=== PATIENT | female | born 1990 | race Caucasian/White ===

== ENCOUNTER 2018-11-28 03:51 | Inpatient (IN) | payer MEDICAID ==
[~2018-11-28] VITALS: Ht 162.6 cm; Wt 62.9 kg
[~2018-11-28 03:51] MED LIST: DIAZ10TA PO; ZOLOFT PO
[2018-11-28] MEDS ORDERED: SODIUM CHLORIDE 0.9% 1,000 ML IV ONE (03:55)
[2018-11-28] MEDS ORDERED: SODIUM CHLORIDE FLUSH 10ML SYR IVF ONE (04:00)
[2018-11-28] MEDS ORDERED: ONDANSETRON 2MG/ML, 2ML IVPush ONE (04:00)
[2018-11-28] MEDS ORDERED: MORPHINE SULFATE 4 MG/ML, 1ML IVPush PRN (04:00)
[2018-11-28] MEDS ORDERED: ESCI10TA10 PO (04:03)
--- NOTE | 2018-11-28 04:03 | NUR ---
BIB [facility] FROM [facility] FOR RIGHT FACIAL/NECK ABSCESS. [facility] ADMIN 50MCG F[place]ANYL EN ROUTE. PT. VERY DRWOSY ON ARRIVAL AND ONLY ANSWERING QUESTIONS IN 1 WORD AND REQUIRES QUESTIONS TO BE REPEATED BEFORE ANSWERING. VSS. DR. MELTON WAS IN TO EVAL PT. AND DISCUSS POC WITH PT. AND BOYFRIEND WHO ARRIVED AT . PT. PLACED ON CONTINUOUS PULSE OX AND B/P MONITORS. CALL LIGHT IN REACH. PT. TO CT VIA VISHNU SAENZ.
[2018-11-28] MEDS ORDERED: OMNIPAQUE 350 MG/ML, 100ML BOTTLE ONE (04:18)
[2018-11-28] MEDS ORDERED: ONDANSETRON 2MG/ML, 2ML ONE (04:28)
[2018-11-28] MEDS ORDERED: MORPHINE SULFATE 4 MG/ML, 1ML ONE (04:28)
--- NOTE | 2018-11-28 04:34 | NUR ---
UPON RETURN FROM CT PT. AMBULATED TO BR AND BACK TO ROOM WITH ASSIST FROM BOYFRIEND. PT. HAS BEEN MEDICATED PER OCT FOR REPORTED 10/10 FACIAL PAIN. LAB AT FOR BLOOD DRAW. ALAINA PAW WARMER IN USE PT. C/O BEING COLD. CALL LIGHT IN REACH. ALL SAFETY MEASURES OBSERVED.
[2018-11-28 04:53] LABS: ALBUMIN 3.1 g/dL (3.4-5.0); ANION GAP 6 mmol/L (5-15); CHLORIDE 103 mmol/L (98-107); CREATININE 0.65 mg/dL (0.55-1.02)
--- NOTE | 2018-11-28 05:22 | NUR ---
PT. TO HAVE 2 SETS OF BLOOD CULTURES PRIOR TO VANCO. PT. DID RECEIVE 3G UNASYN AT [facility].
--- NOTE | 2018-11-28 05:28 | NUR ---
DR. MELTON IN TO DISCUSS POC WITH PT. AND BOYFRIEND. PT. IS RESTING ON GURNEY WITH EYES CLOSED. O2 SAT DROPPING TO 85%; 2L O2 VIA NC PLACED WITH IMMEDIATE INCREASE TO 98%. ALL SAFETY MEASURES OBSERVED.
[2018-11-28] MEDS ORDERED: VANCOMYCIN PER PHARMACY MC PRN (05:30)
[2018-11-28] MEDS ORDERED: VANCOMYCIN 1,200 MG in SODIUM CHLORIDE 0.9% 250 ML IV ONE (05:30)
--- NOTE | 2018-11-28 05:40 | NUR ---
REPORT TO CHARANJIT BRAN. FLOOR READY FOR PT. TRANSPORT. PT. IS GETTING BLOOD CULTURES DRAWN BY LAB AT THIS TIME.
[2018-11-28 06:01] LABS: MEAN CORPUSCULAR HEMOGLOBIN 30.8 pg (27.0-34.8); MEAN CORPUSCULAR HGB CONC 34.2 g/dL (32.4-35.8); MEAN CORPUSCULAR VOLUME 90.1 fL (80-100); MEAN PLATELET VOLUME 7.4 fL (7.4-10.4); PLATELET COUNT 159 x10^3/uL (130-400); RED BLOOD COUNT 4.01 x10^6/uL (3.82-5.3); RED CELL DISTRIBUTION WIDTH 12.7 % (9.6-15.2)
[2018-11-28 06:02] LABS: BASOPHILS # (AUTO) 0.02 x10^3/uL (0-0.1); BASOPHILS % (AUTO) 0 % (0-1); EOSINOPHILS # (AUTO) 0.12 x10^3/uL (0-0.4); EOSINOPHILS % (AUTO) 1 % (1-7); LYMPHOCYTES # (AUTO) 1.87 x10^3/uL (1-3.4); LYMPHOCYTES % (AUTO) 15 % (22-44); MONOCYTES # (AUTO) 0.65 x10^3/uL (0.2-0.8); MONOCYTES % (AUTO) 5 % (2-9); NEUTROPHILS # (AUTO) 9.53 x10^3/uL (1.8-6.8); NEUTROPHILS % (AUTO) 78 % (42-75)
[2018-11-28 06:03] VITALS: BP 97/58
[2018-11-28 06:50] VITALS: BP 115/69
[2018-11-28 07:02] LABS: MD NO
[2018-11-28] MEDS: KETOROLAC 30 MG/1 ML IVPush PRN ×2 (09:53→16:51)
[2018-11-28] MEDS ORDERED: morphine SULFATE 10 MG/ML, 1ML IVPush PRN (10:00)
[2018-11-28] MEDS ORDERED: ONDANSETRON 2MG/ML, 2ML IVPush PRN ×2 (10:00→16:00)
[2018-11-28] MEDS: DEXAMETHASONE 4 MG/ML, 1ML IVPush SCH ×3 (10:28→22:55)
[2018-11-28] MEDS: AMPICILLIN/SULBACTAM 3 GM in SODIUM CHLORIDE 0.9% 100 ML IV SCH ×3 (10:28→22:54)
[2018-11-28 14:18] VITALS: BP 97/62
[2018-11-28] MEDS: SODIUM CHLORIDE 0.9% 1,000 ML IV SCH ×2 (14:24→22:54)
[2018-11-28] MEDS ORDERED: BISACODYL 10 MG SUPP PR PRN (16:00)
[2018-11-28] MEDS ORDERED: ONDANSETRON ODT 4 MG PO PRN (16:00)
[2018-11-28] MEDS ORDERED: ACETAMINOPHEN 325 MG TABLET PO PRN (16:00)
[2018-11-28] MEDS ORDERED: PROMETHAZINE 25 MG/ML, 1ML IM PRN (16:00)
[2018-11-28] MEDS ORDERED: POLYETHYLENE GLYCOL 17 GM PACKET PO PRN (16:00)
[2018-11-28] MEDS ORDERED: DOCUSATE 100 MG CAPSULE PO PRN (16:00)
[2018-11-28 16:43] LABS: FREE T4 (FREE THYROXINE) 1.42 ng/dL (0.76-1.46); THYROID STIMULATING HORMONE 0.214 mIU/L (0.358-3.740)
[2018-11-28] MEDS: METHADONE 5 MG TABLET PO SCH ×2 (16:52→22:54)
[2018-11-28 19:58] VITALS: BP 100/55
[2018-11-29 02:00] VITALS: BP 93/54
[2018-11-29] MEDS: DEXAMETHASONE 4 MG/ML, 1ML IVPush SCH ×3 (05:03→20:16)
[2018-11-29] MEDS: AMPICILLIN/SULBACTAM 3 GM in SODIUM CHLORIDE 0.9% 100 ML IV SCH ×3 (05:03→20:15)
[2018-11-29] MEDS: METHADONE 5 MG TABLET PO SCH (05:04)
[2018-11-29] MEDS: KETOROLAC 30 MG/1 ML IVPush PRN ×2 (05:11→15:44)
[2018-11-29 06:03] LABS: CHLORIDE 114 mmol/L (98-107)
[2018-11-29 06:09] LABS: MD SCAN
[2018-11-29 06:10] LABS: ALANINE AMINOTRANSFERASE 21 U/L (12-78); ALBUMIN 2.5 g/dL (3.4-5.0); ALKALINE PHOSPHATASE 59 U/L (45-117); ANION GAP 4 mmol/L (5-15); BASOPHILS # (AUTO) 0.02 x10^3/uL (0-0.1); BASOPHILS % (AUTO) 0 % (0-1); BILIRUBIN,TOTAL 0.1 mg/dL (0.2-1.0); CALCIUM 7.8 mg/dL (8.5-10.1); CHOL/HDL RATIO 2.3; CHOLESTEROL, TOTAL 118 mg/dL (140-239); CREATININE 0.49 mg/dL (0.55-1.02); EOSINOPHILS % (AUTO) 0 % (1-7); HDL CHOL % 43 % (28-40); HDL CHOLESTEROL (DIRECT) 51 mg/dL (40-60); LDL CHOLESTEROL,CALCULATED 57 mg/dL (54-169); LDL/HDL RATIO 1.1 (0.5-3.0); LYMPHOCYTES # (AUTO) 0.65 x10^3/uL (1-3.4); LYMPHOCYTES % (AUTO) 7 % (22-44); MEAN CORPUSCULAR HEMOGLOBIN 31.1 pg (27.0-34.8); MEAN CORPUSCULAR HGB CONC 34.2 g/dL (32.4-35.8); MEAN CORPUSCULAR VOLUME 90.9 fL (80-100); MEAN PLATELET VOLUME 8.5 fL (7.4-10.4); MONOCYTES # (AUTO) 0.11 x10^3/uL (0.2-0.8); MONOCYTES % (AUTO) 1 % (2-9); NEUTROPHILS # (AUTO) 8.85 x10^3/uL (1.8-6.8); NEUTROPHILS % (AUTO) 92 % (42-75); PLATELET COUNT 187 x10^3/uL (130-400); RED BLOOD COUNT 3.91 x10^6/uL (3.82-5.3); TOTAL PROTEIN 5.7 g/dL (6.4-8.2); TRIGLYCERIDES 51 mg/dL (50-200); VLDL CHOLESTEROL 10 mg/dL (0-25)
[2018-11-29] MEDS: ESCITALOPRAM 10MG TABLET PO SCH (08:47)
[2018-11-29] MEDS: SODIUM CHLORIDE 0.9% 1,000 ML IV SCH ×2 (08:48→14:13)
[2018-11-29] MEDS ORDERED: ONDANSETRON 2MG/ML, 2ML ONE (09:02)
[2018-11-29] MEDS ORDERED: EPHEDRINE 50 MG/ML, 1ML ONE (09:02)
[2018-11-29] MEDS ORDERED: DEXAMETHASONE 4 MG/ML, 1ML ONE (09:02)
[2018-11-29] MEDS ORDERED: SUCCINYLCHOLINE 20 MG/ML, 10ML ONE (09:02)
[2018-11-29] MEDS ORDERED: PROPOFOL 10 MG/ML, 20ML ONE (09:02)
[2018-11-29] MEDS ORDERED: METHADONE 10 MG TABLET PO SCH (10:30)
[2018-11-29 11:00] VITALS: BP 94/53
[2018-11-29] MEDS ORDERED: OMNIPAQUE 350 MG/ML, 100ML BOTTLE ONE (11:22)
[2018-11-29 15:39] VITALS: BP 95/60
[2018-11-29] MEDS ORDERED: FENTANYL PF 250 MCG/5ML ONE (17:00)
[2018-11-29 17:09] LABS: HCG UR SG > 1.045 (1.003-1.030)
[2018-11-29] MEDS ORDERED: MIDAZOLAM 1 MG/ML, 2ML ONE (17:09)
[2018-11-29] MEDS ORDERED: LIDOCAINE 1%-EPI 1:100K, 20ML ONE (17:21)
[2018-11-29] MEDS ORDERED: HALOPERIDOL 5 MG/ML ONE ×2 (18:36→18:42)
[2018-11-29] MEDS ORDERED: HYDROmorphone 2 MG/ML, 1ML IVPush PRN (19:00)
[2018-11-29] MEDS ORDERED: OXYcodone 5 MG/5 ML ORAL.SOL UDC PO PRN (19:00)
[2018-11-29] MEDS ORDERED: HALOPERIDOL 5 MG/ML IV PRN (19:00)
[2018-11-29] MEDS ORDERED: FENTANYL PF 100 MCG/2ML IV PRN (19:00)
[2018-11-29] MEDS ORDERED: PROMETHAZINE 25 MG/ML, 1ML IV PRN (19:00)
[2018-11-29] MEDS ORDERED: MEPERIDINE/PF 25MG/0.5ML IVPush PRN (19:00)
[2018-11-29 19:40] VITALS: BP 104/61
[2018-11-30] MEDS: KETOROLAC 30 MG/1 ML IVPush PRN (00:28)
[2018-11-30] MEDS: SODIUM CHLORIDE 0.9% 1,000 ML IV SCH ×3 (00:28→14:19)
[2018-11-30 01:27] VITALS: BP 96/54
[2018-11-30] MEDS: DEXAMETHASONE 4 MG/ML, 1ML IVPush SCH ×4 (02:24→19:40)
[2018-11-30] MEDS: AMPICILLIN/SULBACTAM 3 GM in SODIUM CHLORIDE 0.9% 100 ML IV SCH ×4 (02:24→19:40)
[2018-11-30] MEDS: ACETAMINOPHEN 500 MG TABLET PO PRN (02:33)
[2018-11-30 05:19] LABS: MEAN CORPUSCULAR HEMOGLOBIN 30.2 pg (27.0-34.8); MEAN CORPUSCULAR HGB CONC 33.3 g/dL (32.4-35.8); MEAN CORPUSCULAR VOLUME 90.7 fL (80-100); MEAN PLATELET VOLUME 9.1 fL (7.4-10.4); PLATELET COUNT 171 x10^3/uL (130-400); RED BLOOD COUNT 3.76 x10^6/uL (3.82-5.3)
[2018-11-30 05:32] LABS: MD YES
[2018-11-30 05:35] LABS: BAND#(MANUAL) 0.36 x10^3/uL; BANDS%(MANUAL) 3 % (0-7); LYMPH#(MANUAL) 1.09 x10^3/uL (1-3.4); LYMPHS% (MANUAL) 9 % (22-44); SEG#(MANUAL) 10.65 x10^3/uL (1.8-6.8); SEGS% (MANUAL) 88 % (42-75)
[2018-11-30 05:36] LABS: <PLATELET ESTIMATE> ADEQUATE; <PLT MORPHOLOGY> NORMAL PLT MORPH; <RBC MORPHOLOGY> NORMAL
[2018-11-30] MEDS: ESCITALOPRAM 10MG TABLET PO SCH (08:20)
[2018-11-30 08:22] VITALS: BP 105/62
[2018-11-30] MEDS ORDERED: METHADONE 10 MG TABLET PO SCH (09:00)
[2018-11-30 14:22] VITALS: BP 111/68
[2018-11-30 20:08] VITALS: BP 101/67
[2018-12-01 01:30] VITALS: BP 108/69
[2018-12-01] MEDS: AMPICILLIN/SULBACTAM 3 GM in SODIUM CHLORIDE 0.9% 100 ML IV SCH ×4 (01:36→21:06)
[2018-12-01] MEDS: DEXAMETHASONE 4 MG/ML, 1ML IVPush SCH ×3 (01:36→14:24)
[2018-12-01] MEDS: KETOROLAC 30 MG/1 ML IVPush PRN ×2 (08:35→21:06)
[2018-12-01] MEDS: ESCITALOPRAM 10MG TABLET PO SCH (08:36)
[2018-12-01] MEDS: METHADONE 10 MG TABLET PO SCH (08:37)
[2018-12-01 09:03] VITALS: BP 111/69
[2018-12-01 14:28] VITALS: BP 111/67
[2018-12-01 18:32] VITALS: BP 112/72
[2018-12-02 01:23] VITALS: BP 126/81
[2018-12-02] MEDS: AMPICILLIN/SULBACTAM 3 GM in SODIUM CHLORIDE 0.9% 100 ML IV SCH ×4 (02:58→21:02)
[2018-12-02] MEDS: KETOROLAC 30 MG/1 ML IVPush PRN ×2 (02:59→21:06)
[2018-12-02 04:41] LABS: ANION GAP 6 mmol/L (5-15); CALCIUM 7.6 mg/dL (8.5-10.1); CHLORIDE 112 mmol/L (98-107); CREATININE 0.59 mg/dL (0.55-1.02)
[2018-12-02 06:22] LABS: MEAN CORPUSCULAR HGB CONC 32.9 g/dL (32.4-35.8); MEAN CORPUSCULAR VOLUME 91.2 fL (80-100); MEAN PLATELET VOLUME 8.9 fL (7.4-10.4); PLATELET COUNT 197 x10^3/uL (130-400); RED BLOOD COUNT 4.06 x10^6/uL (3.82-5.3); RED CELL DISTRIBUTION WIDTH 12.7 % (9.6-15.2)
[2018-12-02 06:49] LABS: BASOPHILS # (AUTO) 0.01 x10^3/uL (0-0.1); BASOPHILS % (AUTO) 0 % (0-1); EOSINOPHILS % (AUTO) 0 % (1-7); LYMPHOCYTES # (AUTO) 1.32 x10^3/uL (1-3.4); LYMPHOCYTES % (AUTO) 19 % (22-44); MD SCAN; MONOCYTES # (AUTO) 0.48 x10^3/uL (0.2-0.8); MONOCYTES % (AUTO) 7 % (2-9); NEUTROPHILS # (AUTO) 5.05 x10^3/uL (1.8-6.8); NEUTROPHILS % (AUTO) 74 % (42-75)
[2018-12-02 07:41] VITALS: BP 132/84
[2018-12-02] MEDS: METHADONE 10 MG TABLET PO SCH (08:13)
[2018-12-02] MEDS: ESCITALOPRAM 10MG TABLET PO SCH (08:13)
[2018-12-02 11:42] VITALS: BP 111/67
[2018-12-02 18:29] VITALS: BP 99/63
[2018-12-03 00:14] VITALS: BP 109/72
[2018-12-03] MEDS: AMPICILLIN/SULBACTAM 3 GM in SODIUM CHLORIDE 0.9% 100 ML IV SCH ×4 (02:52→21:10)
[2018-12-03 09:08] VITALS: BP 120/77
[2018-12-03] MEDS: ESCITALOPRAM 10MG TABLET PO SCH (09:29)
[2018-12-03] MEDS: METHADONE 10 MG TABLET PO SCH (09:29)
[2018-12-03 14:35] VITALS: BP 94/62
[2018-12-03 18:30] VITALS: BP 94/60
[2018-12-03] MEDS: ACETAMINOPHEN 500 MG TABLET PO PRN (20:06)
[2018-12-04 01:08] VITALS: BP 116/76
[2018-12-04] MEDS: AMPICILLIN/SULBACTAM 3 GM in SODIUM CHLORIDE 0.9% 100 ML IV SCH ×3 (03:25→15:30)
[2018-12-04 07:36] VITALS: BP 107/73
[2018-12-04] MEDS: ESCITALOPRAM 10MG TABLET PO SCH (11:14)
[2018-12-04] MEDS: METHADONE 10 MG TABLET PO SCH (11:14)
[2018-12-04 12:44] VITALS: BP 95/60
[2018-12-04] MEDS ORDERED: AMOX1TAB64 PO (12:49)
== END 2018-12-04 17:30 | disposition home or self-care (01) | DRG 602 ==
LOC: MERGE 03:51 → ED 05:30 → EDIP 05:31 → 3NW 05:50
PROVIDERS: ADMIT Internal Medicine; ATTEND Internal Medicine
PROC: 0JC40ZZ Extirpation of Matter from Right Neck Subcutaneous Tissue and Fascia, Open Approach (ICD-10-PCS; principal; 2018-11-29 17:00)
DX: L03.221 Cellulitis of neck (principal); E43 Unspecified severe protein-calorie malnutrition; S10.95XA Superficial foreign body of unspecified part of neck, initial encounter; L02.11 Cutaneous abscess of neck; Z68.23 Body mass index [BMI] 23.0-23.9, adult; F11.10 Opioid abuse, uncomplicated; F17.200 Nicotine dependence, unspecified, uncomplicated; R13.10 Dysphagia, unspecified; X58.XXXA Exposure to other specified factors, initial encounter; Y93.89 Activity, other specified; Y92.89 Other specified places as the place of occurrence of the external cause; Y99.8 Other external cause status
CPT/HCPCS: 36415; 70360; 70491; 76000; 80048; 80053; 80061; 81025; 82040; 83735; 84145; 84439; 84443; 85025; 87040; 87070; 87075; 87077; 87176; 87186; 87205; 88300; 96374; 96375; G0378; J0295; J1100; J1885; J2250; J2405; J2704; J3010; J3370; J3490; Q9967; J0330; J2270; J7030; J7050

== ENCOUNTER 2019-07-12 12:56 | Emergency (ER) | payer MEDICAID ==
[~2019-07-12] VITALS: Ht 165.1 cm; Wt 60.0 kg
[~2019-07-12 12:56] MED LIST changes: +AMOX1TAB64 PO; +ESCI10TA10 PO
--- NOTE | 2019-07-12 13:25 | NUR ---
PT BIB [facility] AFTER REQUESTING [employer]T REPAIR[employer]S GUN TO SHOOT HERSELF. PT ADMITS TO HEROIN USE AND HAS ARON "GOING THROUGH SOME THINGS." PER [facility] PT STARTED TO REQUEST TO LEAVE ON ARRRIVAL TO HOSPITAL. PT UNCOOPERATIVE AND NOT WANTING TO GET UNDRESSED PER HOSPITAL POLICY FOR BEING ON LEGAL HOLD. PT ATTEMPTED ONCE TO RUN OUT OF THE ER AND HAD TO BE PLACED BACK IN THE ROOM. DR. LYNN AT BEDSIDE.
--- NOTE | 2019-07-12 13:25 | NUR ---
WHILE FEMALE NURSE, SANDY Carranza RN, WAS IN ROOM ATTEMPTING TO GET UNDRESSED PT ATTEMPTED TO BOLT FOR THE DOOR WITH SECURITY OBSERVING. PT PLACED IN 2 POINT RESTRAINT. PT HAS NOT BEEN VIOLENT, JUST ATTEMPTS TO LEAVE. PT UPDATED AGAIN ON POC AND CONTRADICTED HERSELF FROM EARLIER WHEN SHE SAID SHE HAD NEVER BEEN ON A LEGAL HOLD. PT KNEW THE LENGTH OF THE LEGAL HOLD AND ALSO ADMITTED TO PAST ATTEMPTS TO HURT HERSELF.
[2019-07-12] MEDS ORDERED: PLEASE ENTER HEIGHT AND WEIGHT MC SCH (13:30)
[2019-07-12] MEDS ORDERED: ZIPRASIDONE 20 MG INJ IM ONE (13:30)
[2019-07-12 13:42] LABS: BASOPHILS # (AUTO) 0.03 x10^3/uL (0-0.1); BASOPHILS % (AUTO) 0 % (0-1); EOSINOPHILS # (AUTO) 0.09 x10^3/uL (0-0.4); EOSINOPHILS % (AUTO) 1 % (1-7); LYMPHOCYTES # (AUTO) 2.35 x10^3/uL (1-3.4); LYMPHOCYTES % (AUTO) 30 % (22-44); MD NO; MEAN CORPUSCULAR HEMOGLOBIN 30.8 pg (27.0-34.8); MEAN CORPUSCULAR HGB CONC 33.4 g/dL (32.4-35.8); MEAN CORPUSCULAR VOLUME 92.4 fL (80-100); MEAN PLATELET VOLUME 8.7 fL (7.4-10.4); MONOCYTES # (AUTO) 0.61 x10^3/uL (0.2-0.8); MONOCYTES % (AUTO) 8 % (2-9); NEUTROPHILS # (AUTO) 4.77 x10^3/uL (1.8-6.8); NEUTROPHILS % (AUTO) 61 % (42-75); PLATELET COUNT 264 x10^3/uL (130-400); RED BLOOD COUNT 5.05 x10^6/uL (3.82-5.3); RED CELL DISTRIBUTION WIDTH 12.8 % (9.6-15.2)
[2019-07-12 13:53] LABS: ALANINE AMINOTRANSFERASE 28 U/L (12-78); ALBUMIN 4.4 g/dL (3.4-5.0); ANION GAP 15 mmol/L (5-15); CHLORIDE 108 mmol/L (98-107); CREATININE 1.25 mg/dL (0.55-1.02); SALICYLATE LEVEL 2.1 mg/dL (2.8-20.0)
[2019-07-12 13:55] LABS: ALKALINE PHOSPHATASE 82 U/L (45-117); BILIRUBIN,TOTAL 0.7 mg/dL (0.2-1.0); TOTAL PROTEIN 8.1 g/dL (6.4-8.2)
--- NOTE | 2019-07-12 14:20 | NUR ---
PT SLEEPING. PT BEING OBSERVEDF BY SITTER. REST OF PT CLOTHING REMOVED BY ZULLY DONOHUE AND PLACED IN SECURITY LOCKER. RESTRAINTS REMOVED. PT REQUESTING FOOD.
--- NOTE | 2019-07-12 15:51 | NUR ---
PT GIVEN MEAL TRAY. PT BEING OBSERVED BY SITTER.
--- NOTE | 2019-07-12 16:12 | NUR ---
PT ATE 75% OF MEAL TRAY. WILL ATTEMPT TO GET PT TO VOID FOR RONAL.
--- NOTE | 2019-07-12 16:46 | NUR ---
URINE COLLECTED AND SENT TO THE LAB.
[2019-07-12 16:56] LABS: HCG UR SG 1.036 (1.003-1.030)
[2019-07-12 17:10] LABS: AMPHETAMINE SCREEN, URINE Positive (Negative); BARBITURATE SCREEN, URINE Negative (Negative); BENZODIAZEPINE SCREEN, URINE Positive (Negative); CANNABINOID SCREEN, URINE Positive (Negative); COCAINE SCREEN, URINE Negative (Negative); METHADONE SCREEN, URINE Negative (Negative); OPIATE SCREEN, URINE Negative (Negative)
--- NOTE | 2019-07-12 18:23 | NUR ---
PT SLEEPING IN NAD. PT BEING OBSERVED BY SITTER. WAITING FOR SOC TO EVALUATE PT.
--- NOTE | 2019-07-12 18:41 | NUR ---
PT RESTING IN HOSPTIAL BED. SUICIDE PRECAUTIONS IN PLACE IN SUICIDE SECURED ROOM. SITTER OUTSIDE THE ROOM. PT REQUEST DINNER TRAY. DINNER ORDER PUT IN
[2019-07-12 19:44] LABS: INTERNATIONAL NORMALIZED RATIO 1.03 (0.93-1.1); PROTHROMBIN TIME 10.8 Seconds (9.6-11.5)
--- NOTE | 2019-07-12 19:44 | NUR ---
SPOKE TO SOC DR. HALL IN REGARDS TO PT. GAVE THE DOCTOR THE SITUTATION AND BACKGROUND. WHEN I AROUSED THE PT TO SPEAK WITH DR. HALL VIA SOC COMPUTER THE PT CLOSED HER EYES AND WAS UNABLE TO ANSWER DR. HALL. DR. HALL THEN CALLED THIS RN BACK AND STATED THAT SHE WAS UNABLE TO PROPERLY ASSESS THE PT AND WOUULD TRY AGAIN WHEN THE PT IS NOT TIRED.
--- NOTE | 2019-07-12 19:47 | NUR ---
PT ATE 25% OF MEAL TRAY. DID NOT TAKE A BITE OF THE SANDWHICH OR EAT THE COOKIES
[2019-07-12] MEDS ORDERED: LACTULOSE 10 GM/15 ML UDC PO ONE (20:00)
[2019-07-12] MEDS ORDERED: SODIUM CHLORIDE FLUSH 10ML SYR IVF ONE (20:30)
[2019-07-12] MEDS ORDERED: SODIUM CHLORIDE 0.9% 1,000ML IVBOLUS ONE (20:30)
[2019-07-12 20:55] VITALS: BP 117/84
--- NOTE | 2019-07-12 20:56 | NUR ---
PT IN ROOM. GETTING FLUIDS IV. REQUESTED GLASS OF WATER. IS RESTING IN BED WITH EYES CLOSED.
--- NOTE | 2019-07-12 22:01 | NUR ---
PT SLEEPING. NAD. SITTER IN PLACE.
--- NOTE | 2019-07-12 23:08 | NUR ---
PT SLEEPING. NAD. SITTER IN PLACE
--- NOTE | 2019-07-12 23:39 | NUR ---
PT GIVEN WATER PER REQUEST. PT DENIES FURTHER NEEDS AT THIS TIME. SITTER REMAINS IN PLACE
[2019-07-12 23:44] LABS: ALBUMIN 3.2 g/dL (3.4-5.0); ANION GAP 4 mmol/L (5-15); CALCIUM 8.3 mg/dL (8.5-10.1); CHLORIDE 111 mmol/L (98-107); CREATININE 0.71 mg/dL (0.55-1.02)
--- NOTE | 2019-07-13 00:03 | NUR ---
THOUGHPUT: SOC INITIATED PER DR NEVAREZ REQUEST, TELEMONITOR PLACED IN ROOM.
--- NOTE | 2019-07-13 00:05 | NUR ---
PT AWOKEN. PT STATES SHE WILL BE ABLE TO STAY AWAKE LONG ENOUGH TO SPEAK WITH THE PSYCHIATRIST. POC DISCUSSED. PT DENIES CURRENT NEEDS. PT STATES SHE STILL FEELS SUICIDAL. TELEPSYCH REPAGED.
--- NOTE | 2019-07-13 00:40 | NUR ---
THROUGHPUT: [facility]/3E CALLED, STEPHANIE TO DETERMINE ACCEPTANCE/DENIAL OF PT.
--- NOTE | 2019-07-13 00:45 | NUR ---
LATE ENTRY:REPORT GIVEN TO TELEPSYCH DOCTOR. PT VERY SOFT SPOKEN SO THIS RN ASSISTED WITH TELEPSYCH CONVERSATION. PT STILL EXPRESSING SUICIDALITY HOWEVER IS CALM AND COOPERATIVE. AFTER CONVERSATION PT REQUESTING FOOD. PT GIVEN SLOPPY JEREMIAH AND CHIPS PER REQUEST. PT DENIES FURTHER NEEDS. SITTER REMAINS IN PLACE.
--- NOTE | 2019-07-13 01:03 | NUR ---
THROUGHPUT: PACKET FAXED TO [facility], [facility] & [facility].
--- NOTE | 2019-07-13 01:47 | NUR ---
Met with pt for assessment for 3E admission. Prior auth completed with insurance. Awaiting call back from psychiatrist for acceptance. Discussed with ED staff.
--- NOTE | 2019-07-13 02:15 | NUR ---
PT SLEEPING. NAD. SITTER IN PLACE.
== END 2019-07-13 03:09 ==
LOC: ED 20:38
DX: R45.851 Suicidal ideations (principal); E86.0 Dehydration
CPT/HCPCS: 36415; 80048; 80053; 80307; 81025; 82040; 82140; 82550; 85025; 85610; 96360; 96372; 99285; J3486; J7030

== ENCOUNTER 2019-07-13 02:39 | Inpatient (IN) | payer MEDICAID ==
[~2019-07-13] VITALS: Ht 162.6 cm; Wt 60.3 kg
[2019-07-13] MEDS ORDERED: ONDANSETRON ODT 4 MG PO PRN (03:00)
[2019-07-13] MEDS ORDERED: POLYETHYLENE GLYCOL 17 GM PACKET PO PRN (03:00)
[2019-07-13] MEDS ORDERED: BISACODYL 10 MG SUPP PR PRN (03:00)
[2019-07-13] MEDS ORDERED: DOCUSATE 100 MG CAPSULE PO PRN (03:00)
[2019-07-13] MEDS ORDERED: FLU VACC QS2019-20 36MOS UP/PF 0.5 ML IM-VACC ONE (03:30)
[2019-07-13] MEDS: NICOTINE 21 MG/24 HR PATCH.TD24 TD SCH (03:43)
[2019-07-13 03:58] LABS: MICROSCOPIC INDICATED
[2019-07-13 03:59] LABS: CULTURE INDICATED? YES
[2019-07-13 04:03] LABS: CHOL/HDL RATIO 2.6; FREE T4 (FREE THYROXINE) 1.28 ng/dL (0.76-1.46); LDL/HDL RATIO 1.4 (0.5-3.0)
[2019-07-13 04:09] VITALS: BP 106/68
[2019-07-13 07:28] VITALS: BP 94/54
[2019-07-13] MEDS ORDERED: NICOTINE 21 MG/24 HR PATCH.TD24 TD SCH (09:00)
[2019-07-13] MEDS ORDERED: CEFTRIAXONE PMX 2GM/50ML 50 ML IV SCH (09:00)
[2019-07-13] MEDS: POLYETHYLENE GLYCOL 17 GM PACKET PO SCH (09:12)
[2019-07-13] MEDS ORDERED: HYDROXYZINE PAMOATE 50MG CAP ONE (09:36)
[2019-07-13] MEDS: HYDROXYZINE PAMOATE 50MG CAP PO PRN (09:39)
[2019-07-13] MEDS: ESCITALOPRAM 10MG TABLET PO SCH (14:09)
[2019-07-13 19:12] VITALS: BP 102/67
[2019-07-13] MEDS: TRAZODONE 50MG TABLET PO SCH (20:17)
[2019-07-14 07:24] VITALS: BP 101/60
[2019-07-14] MEDS: ESCITALOPRAM 10MG TABLET PO SCH (09:37)
[2019-07-14] MEDS: POLYETHYLENE GLYCOL 17 GM PACKET PO SCH (09:38)
[2019-07-14] MEDS: NICOTINE 21 MG/24 HR PATCH.TD24 TD SCH (09:39)
[2019-07-14] MEDS: CEFDINIR 300 MG CAPSULE PO SCH ×2 (10:09→20:33)
[2019-07-14] MEDS: LORazepam 1MG TABLET PO PRN (13:16)
[2019-07-14] MEDS: METHOCARBAMOL 500 MG TABLET PO PRN ×2 (13:16→20:33)
[2019-07-14 19:22] VITALS: BP 96/60
[2019-07-14] MEDS: TRAZODONE 50MG TABLET PO SCH (20:36)
[2019-07-15 07:57] VITALS: BP 107/68
[2019-07-15] MEDS: POLYETHYLENE GLYCOL 17 GM PACKET PO SCH (08:24)
[2019-07-15] MEDS: NICOTINE 21 MG/24 HR PATCH.TD24 TD SCH (08:24)
[2019-07-15] MEDS: CEFDINIR 300 MG CAPSULE PO SCH ×2 (08:24→20:00)
[2019-07-15] MEDS: LORazepam 1MG TABLET PO PRN ×2 (08:33→17:40)
[2019-07-15] MEDS: METHOCARBAMOL 500 MG TABLET PO PRN ×2 (08:33→20:08)
[2019-07-15] MEDS: ESCITALOPRAM 10MG TABLET PO SCH (12:32)
[2019-07-15] MEDS: ACETAMINOPHEN 325 MG TABLET PO PRN ×2 (14:08→20:00)
[2019-07-15 17:38] VITALS: BP 102/71
[2019-07-15 19:52] VITALS: BP 100/66
[2019-07-15] MEDS: TRAZODONE 50MG TABLET PO SCH (20:00)
[2019-07-15] MEDS: HYDROXYZINE PAMOATE 50MG CAP PO PRN (20:08)
[2019-07-16 07:37] VITALS: BP 101/69
[2019-07-16] MEDS: ESCITALOPRAM 10MG TABLET PO SCH (08:50)
[2019-07-16] MEDS: CEFDINIR 300 MG CAPSULE PO SCH ×2 (08:50→20:14)
[2019-07-16] MEDS: METHOCARBAMOL 500 MG TABLET PO PRN ×3 (08:50→21:58)
[2019-07-16] MEDS: ACETAMINOPHEN 325 MG TABLET PO PRN ×2 (08:51→14:45)
[2019-07-16] MEDS: POLYETHYLENE GLYCOL 17 GM PACKET PO SCH (08:54)
[2019-07-16] MEDS: NICOTINE 21 MG/24 HR PATCH.TD24 TD SCH (08:55)
[2019-07-16] MEDS: LORazepam 1MG TABLET PO PRN ×2 (14:45→21:55)
[2019-07-16 19:41] VITALS: BP 95/60
[2019-07-16] MEDS ORDERED: QUETIAPINE 100MG TABLET PO SCH (21:00)
[2019-07-17 07:12] VITALS: BP 110/72
[2019-07-17] MEDS: ESCITALOPRAM 10MG TABLET PO SCH (08:45)
[2019-07-17] MEDS: CEFDINIR 300 MG CAPSULE PO SCH (08:45)
[2019-07-17] MEDS: NICOTINE 21 MG/24 HR PATCH.TD24 TD SCH (08:45)
[2019-07-17] MEDS: LORazepam 1MG TABLET PO PRN ×2 (08:46→16:08)
[2019-07-17] MEDS: ACETAMINOPHEN 325 MG TABLET PO PRN ×2 (08:46→16:08)
[2019-07-17] MEDS: POLYETHYLENE GLYCOL 17 GM PACKET PO SCH (08:46)
[2019-07-17] MEDS: METHOCARBAMOL 500 MG TABLET PO PRN ×2 (08:46→16:08)
[2019-07-17] MEDS: HYDROXYZINE PAMOATE 50MG CAP PO PRN ×2 (11:16→20:35)
[2019-07-17 19:00] VITALS: BP 95/62
[2019-07-17] MEDS ORDERED: QUETIAPINE 100MG TABLET PO SCH (21:00)
[2019-07-18 07:30] VITALS: BP 100/64
[2019-07-18] MEDS: ACETAMINOPHEN 325 MG TABLET PO PRN ×2 (08:30→21:08)
[2019-07-18] MEDS: POLYETHYLENE GLYCOL 17 GM PACKET PO SCH (08:30)
[2019-07-18] MEDS: LORazepam 1MG TABLET PO PRN ×2 (08:30→17:59)
[2019-07-18] MEDS: NICOTINE 21 MG/24 HR PATCH.TD24 TD SCH (08:30)
[2019-07-18] MEDS: ESCITALOPRAM 10MG TABLET PO SCH (08:30)
[2019-07-18] MEDS: METHOCARBAMOL 500 MG TABLET PO PRN ×2 (08:30→20:10)
[2019-07-18 11:32] VITALS: BP 104/68
[2019-07-18 19:47] VITALS: BP 101/68
[2019-07-18] MEDS: QUETIAPINE 100MG TABLET PO SCH (20:10)
[2019-07-19 07:49] VITALS: BP 109/76
[2019-07-19] MEDS: POLYETHYLENE GLYCOL 17 GM PACKET PO SCH (09:00)
[2019-07-19] MEDS: ESCITALOPRAM 10MG TABLET PO SCH (09:00)
[2019-07-19] MEDS: METHOCARBAMOL 500 MG TABLET PO PRN (09:00)
[2019-07-19] MEDS: NICOTINE 21 MG/24 HR PATCH.TD24 TD SCH (09:01)
[2019-07-19] MEDS ORDERED: QUETIAPINE 25MG TABLET ONE (09:39)
[2019-07-19] MEDS: QUETIAPINE 25MG TABLET PO SCH ×2 (09:41→16:23)
[2019-07-19 11:53] VITALS: BP 98/59
[2019-07-19 11:54] VITALS: BP 100/59
[2019-07-19 19:19] VITALS: BP 98/62
[2019-07-19] MEDS: QUETIAPINE 100MG TABLET PO SCH (20:05)
[2019-07-19] MEDS: LORazepam 1MG TABLET PO PRN (20:05)
[2019-07-20 07:15] VITALS: BP 102/64
[2019-07-20] MEDS: METHOCARBAMOL 500 MG TABLET PO PRN ×2 (08:44→14:56)
[2019-07-20] MEDS: LORazepam 1MG TABLET PO PRN ×2 (08:44→14:56)
[2019-07-20] MEDS: QUETIAPINE 25MG TABLET PO SCH ×2 (08:44→16:06)
[2019-07-20] MEDS: NICOTINE 21 MG/24 HR PATCH.TD24 TD SCH (08:44)
[2019-07-20] MEDS: ESCITALOPRAM 10MG TABLET PO SCH (08:44)
[2019-07-20] MEDS: POLYETHYLENE GLYCOL 17 GM PACKET PO SCH (08:45)
[2019-07-20] MEDS: ACETAMINOPHEN 325 MG TABLET PO PRN (13:13)
[2019-07-20 19:10] VITALS: BP 83/50
[2019-07-20] MEDS: QUETIAPINE 100MG TABLET PO SCH (20:12)
[2019-07-20] MEDS: HYDROXYZINE PAMOATE 50MG CAP PO PRN (20:24)
[2019-07-20 21:00] VITALS: BP 95/65
[2019-07-21 07:17] VITALS: BP 107/69
[2019-07-21] MEDS: ESCITALOPRAM 10MG TABLET PO SCH (09:02)
[2019-07-21] MEDS: QUETIAPINE 25MG TABLET PO SCH ×2 (09:02→17:20)
[2019-07-21] MEDS: POLYETHYLENE GLYCOL 17 GM PACKET PO SCH (09:03)
[2019-07-21] MEDS: LORazepam 1MG TABLET PO PRN ×2 (09:07→17:20)
[2019-07-21] MEDS: METHOCARBAMOL 500 MG TABLET PO PRN ×2 (10:36→20:48)
[2019-07-21] MEDS: NICOTINE 21 MG/24 HR PATCH.TD24 TD SCH (10:39)
[2019-07-21] MEDS ORDERED: QUET25TA7 PO (12:45)
[2019-07-21] MEDS ORDERED: QUET100T PO (12:45)
[2019-07-21] MEDS ORDERED: HYDR50CA2 PO (12:45)
[2019-07-21] MEDS ORDERED: NICO-487 TD (12:45)
[2019-07-21] MEDS ORDERED: ESCI10TA PO (12:45)
[2019-07-21] MEDS: HYDROXYZINE PAMOATE 50MG CAP PO PRN (16:05)
[2019-07-21 19:59] VITALS: BP_SYST 125; BP_SYST 89; BP_DIAS 53; BP_DIAS 83
[2019-07-21] MEDS: QUETIAPINE 100MG TABLET PO SCH (20:43)
[2019-07-22] MEDS: LORazepam 1MG TABLET PO PRN (06:32)
[2019-07-22 07:48] VITALS: BP 115/76
[2019-07-22] MEDS: QUETIAPINE 25MG TABLET PO SCH (08:51)
[2019-07-22] MEDS: ESCITALOPRAM 10MG TABLET PO SCH (08:52)
[2019-07-22] MEDS: METHOCARBAMOL 500 MG TABLET PO PRN (08:52)
[2019-07-22] MEDS: NICOTINE 21 MG/24 HR PATCH.TD24 TD SCH (08:52)
[2019-07-22] MEDS: POLYETHYLENE GLYCOL 17 GM PACKET PO SCH (08:52)
[2019-07-22] MEDS: HYDROXYZINE PAMOATE 50MG CAP PO PRN (08:52)
== END 2019-07-22 10:45 | disposition home or self-care (01) | DRG 885 ==
LOC: 3E 03:01
PROVIDERS: ADMIT Psychiatry & Neurology Psychosomatic Medicine; ATTEND Psychiatry & Neurology Psychosomatic Medicine
DX: F33.3 Major depressive disorder, recurrent, severe with psychotic symptoms (principal); R45.851 Suicidal ideations; N39.0 Urinary tract infection, site not specified; F15.20 Other stimulant dependence, uncomplicated; F41.9 Anxiety disorder, unspecified; G47.00 Insomnia, unspecified; Z72.0 Tobacco use; F11.90 Opioid use, unspecified, uncomplicated; F12.10 Cannabis abuse, uncomplicated; F14.10 Cocaine abuse, uncomplicated; K59.00 Constipation, unspecified; Z79.899 Other long term (current) drug therapy; Z80.0 Family history of malignant neoplasm of digestive organs; Z91.5 Personal history of self-harm; Z91.83 Wandering in diseases classified elsewhere
CPT/HCPCS: 36415; 71045; 80061; 81001; 82607; 84439; 84443; 87086; 90686; 93005; 96374; J0696